=== PATIENT | male | born 1995 | race Caucasian/White ===

== ENCOUNTER 2018-05-01 16:28 | Emergency (ER) | payer OTHER ==
[2018-05-01 16:33] VITALS: BP 144/82
[2018-05-01] MEDS ORDERED: TDAP ADULT 0.5 ML INJ (BOOSTRIX) IM ONE ×2 (16:43)
--- NOTE | 2018-05-01 16:44 | EDPHY ---
H & P Time Seen by Provider: 05/01/18 16:33 HPI/ROS: CHIEF COMPLAINT: Left index finger laceration HISTORY OF PRESENT ILLNESS: Cut at work, works in a restaurant. Sharp knife. REVIEW OF SYSTEMS: No foreign body sensation, no weakness or numbness distally PAST MEDICAL HISTORY: Negative, tetanus unsure if up-to-date Social history: Work injury General Appearance: Alert and conversant, cooperative. Patient has 1 cm laceration radial side of his left index finger at the D IP. Normal FDP, FDS, extensor tendon function. Normal distal 2 point discrimination and capillary refill. Emergency Department course/MDM: Procedure: Laceration repair. Verbal consent was obtained from the patient. The 1 cm laceration on the left index finger was anesthetized using 0.5% bupivacaine without epinephrine. The wound was irrigated with standard emergency department protocol, draped and explored. There were no deep structures involved. No tendon injury was identified. No foreign body found. The wound was repaired with 5 O Ethilon. The wound repair was simple. Excellent hemostasis was obtained. Wound care instructions were discussed and the patient was warned regarding scarring. The procedure was performed by myself. Does not have clinical evidence of deep structure involvement on exam. Tetanus updated. Warned no sharp objects or hot objects at work for the rest the day because the tip of his left index finger will be numb, risk severe injury without protective reflexes. Smoking Status: Never smoked Constitutional: Initial Vital Signs Temperature (C) 36.9 C 05/01/18 16:31 Heart Rate 89 05/01/18 16:31 Respiratory Rate 16 05/01/18 16:31 Blood Pressure 144/82 H 05/01/18 16:31 O2 Sat (%) 96 05/01/18 16:31 O2 Delivery Mode Room Air Allergies/Adverse Reactions: No Known Allergies Allergy (Unverified 05/01/18 16:30) Home Medications: Medication Instructions Recorded NK [No Known Home Meds] 05/01/18 MDM/Departure - MDM Medications Given: Discontinued Medications Diphtheria/Tetanus/Acell Pertussis (Boostrix) 0.5 ml IM .ONCE ONE Stop: 05/01/18 16:44 Last Admin: 05/01/18 16:45 Dose: 0.5 ml - Depart Disposition: Home, Routine, Self-Care Clinical Impression: Laceration of left index finger Qualifiers: Encounter type: initial encounter Damage to nail status: without damage Foreign body presence: without foreign body Qualified Code(s): S61.211A - Laceration without foreign body of left index finger without damage to nail, initial encounter Condition: Good Instructions: Laceration (ED) Additional Instructions: Wound Care Follow-Up: Removal of sutures in 10 days. Suture removal is complimentary in uncomplicated cases. Infection or abnormal findings would require reevaluation by the MD. In that case, you may be billed. Your left index finger will be numb for much of the day. No using sharp objects such as knives, no working around hot stove or pans, as you will not have a protective withdrawal reflex on that finger for the rest of the day. Referrals: Work Comp Ref/Restrictions [Outside] - As per Instructions
== END 2018-05-01 17:08 | disposition home or self-care (01) ==
PROC: 0HQGXZZ Repair Left Hand Skin, External Approach (ICD-10-PCS; principal; 2018-05-01)
DX: S61.211A Laceration without foreign body of left index finger without damage to nail, initial encounter (principal); W26.0XXA Contact with knife, initial encounter; Y92.511 Restaurant or cafe as the place of occurrence of the external cause; Y99.0 Civilian activity done for income or pay; Z23 Encounter for immunization